=== PATIENT | male | born 1950 | race Caucasian/White ===

== ENCOUNTER 2017-10-20 17:09 | Inpatient (IN) | payer OTHER ==
[~2017-10-20] VITALS: Ht 177.8 cm; Wt 97.0 kg
[2017-10-20] MEDS ORDERED: ETOMIDATE (2MG/ML) 20ML VIAL IV ONE ×2 (17:11→17:30)
[2017-10-20] MEDS ORDERED: SUCCINYLCHOLINE CHLORIDE 20 MG/ML 10ML VIAL IV ONE ×2 (17:12→17:30)
[2017-10-20] MEDS ORDERED: MIDAZOLAM DRIP 50 mg/50mL 50 ML IV ONE (17:14)
[2017-10-20] MEDS ORDERED: SODIUM CHLORIDE 0.9% 1,000 ML IV ONE ×2 (17:19→17:29)
[2017-10-20 17:20] VITALS: BP 52/42
[2017-10-20] MEDS: MIDAZOLAM DRIP 50 mg/50mL 50 ML IV SCH (17:20)
[2017-10-20] MEDS ORDERED: PIPERACILLIN-TAZOB 3.375GM 100 ML IV ONE (17:30)
[2017-10-20] MEDS ORDERED: PHENYLEPHRINE INJ 20 MG in D5W 5% 248 ML IV ONE (17:30)
[2017-10-20 17:36] LABS: Urine Bacteria NONE SEEN /hpf (None Seen); Urine Blood Negative /uL (Negative); Urine Specific Gravity 1.015 (1.001-1.035); Urine WBC 2 /hpf (0 - 3)
[2017-10-20] MEDS ORDERED: DOPamine 3200MCG/ML 250 ML IV SCH (17:50)
[2017-10-20] MEDS ORDERED: DOPamine 1600MCG/ML D5W 250 ML IV ONE (18:00)
[2017-10-20 18:19] LABS: Mean Corpuscular Volume 97.6 fL (80.0-100.0)
[2017-10-20 18:21] LABS: Hematocrit 25.4 % (41.0-53.0); Mean Corpuscular Hemoglobin 30.9 pg (28.0-32.0); Mean Corpuscular Hgb Conc. 31.7 g/dL (32.0-36.0); Platelet Count (auto) 341 10^3/uL (140-450); White Blood Cell 29.8 10^3/uL (4.4-10.8)
[2017-10-20 18:22] LABS: Red Cell Distribution Width 21.2 % (11.8-14.3)
[2017-10-20 18:28] LABS: Basophils % (manual) 0 (0.0-2.0); Blast Cells 0; Eosinophils % (manual) 0 (0-7); Metamyelocytes % 0; Myelocytes % 0; Promyelocytes % 0; Reactive Lymphocytes 0
[2017-10-20 18:36] LABS: INR 1.88 (0.9-1.15); Prothrombin Time 19.4 sec (9.27-12.13)
[2017-10-20 18:40] LABS: Albumin 1.7 g/dL (3.4-5.0); BUN/Creatinine Ratio 24.9; Bilirubin, Total 0.7 mg/dL (0.2-1.0); Potassium 3.9 mmol/L (3.5-5.1); Total Protein 5.2 g/dL (6.4-8.2)
[2017-10-20 19:36] LABS: Band Neutrophils % (manual) 1; Lymphocytes % (manual) 2 (10.0-50.0); Monocytes % (manual) 2 (0-12)
[2017-10-20 20:00] VITALS: BP 104/54
[2017-10-20] MEDS ORDERED: ACETAMINOPHEN 325 MG TAB PO PRN (20:00)
[2017-10-20] MEDS ORDERED: SODIUM CHLORIDE 0.9% 500 ML IV ONE (20:00)
[2017-10-20] MEDS ORDERED: ONDANSETRON HCL 4 MG/2 ML VIAL IV PRN (20:00)
[2017-10-20] MEDS ORDERED: MORPHINE SULF INJ 2 MG/ML SYRINGE 1ML IV PRN (20:00)
[2017-10-20] MEDS ORDERED: PANTOPRAZOLE 40 MG/10 ML VIAL IV ONE (20:00)
[2017-10-20] MEDS ORDERED: VANCOMYCIN PER PHARMACY 0 MG IV SCH (20:00)
[2017-10-20] MEDS ORDERED: DEXTROSE (50%) 50ML SYRG IV PRN (20:00)
[2017-10-20] MEDS ORDERED: NITROGLYCERIN 0.4 MG SL TAB SL PRN (20:00)
[2017-10-20] MEDS ORDERED: CALCIUM GLUC 4.65meq/50ml D5AE 50 ML IV ONE ×2 (20:00→20:30)
[2017-10-20] MEDS ORDERED: ENOXAPARIN SOD 100 MG/1 ML SYRINGE SC ONE (20:00)
[2017-10-20] MEDS: NOREPINEPHRINE 8 MG/250ML KIT 250 ML IV SCH (20:28)
[2017-10-20] MEDS: SODIUM CHLORIDE 0.9% 1,000 ML IV SCH (20:29)
[2017-10-20] MEDS ORDERED: ENOXAPARIN SOD 80 MG/0.8ML SYRINGE SC ONE (20:30)
[2017-10-20] MEDS ORDERED: VANCOMYCIN 1GM/250ML 250 ML IV ONE (21:07)
[2017-10-20] MEDS ORDERED: ASPirin 81 mg TAB PO ONE (21:45)
[2017-10-20] MEDS: fentaNYL Drip 2500mCg/250mlNS 250 ML IV SCH (21:49)
[2017-10-20 22:01] VITALS: BP 121/65
[2017-10-20] MEDS ORDERED: PHENYLEPHRINE IV 250 ML IV ONE (22:59)
[2017-10-21] VITALS (74 sets, daily range): BP systolic 62–142; BP diastolic 36–80
[2017-10-21] MEDS: PIPERACILLIN-TAZOB 2.25GM 50 ML IV SCH ×4 (00:30→17:36)
[2017-10-21] MEDS: InsuLIN REG 1unit/0.01ml Soln (100units/ml) SC SCH ×4 (01:09→17:41)
[2017-10-21] MEDS: ACCU-CHEK COMFORT CURVE STRIP VI SCH ×4 (06:00→17:40)
[2017-10-21 06:32] LABS: Eosinophils # (auto) 0.1 uL
[2017-10-21 06:37] LABS: Monocytes # (auto) 1.3 uL; Monocytes % (auto) 3.5 % (0.0-12.0)
[2017-10-21 06:38] LABS: Basophils # (auto) 0 uL; Eosinophils % (auto) 0.4 % (0.0-7.0); Hematocrit 18.6 % (41.0-53.0); Lymphocytes # (auto) 1.6 uL; Lymphocytes % (auto) 4.4 % (10.0-50.0); Mean Corpuscular Hemoglobin 30.6 pg (28.0-32.0); Mean Corpuscular Hgb Conc. 31.7 g/dL (32.0-36.0); Mean Corpuscular Volume 96.5 fL (80.0-100.0); Neutrophils # (auto) 32.9 uL; Neutrophils % (auto) 91.7 % (37.0-80.0); Platelet Count (auto) 442 10^3/uL (140-450); Red Blood Cells 1.93 10^6/uL (4.5-5.90)
[2017-10-21 06:43] LABS: Red Cell Distribution Width 20.7 % (11.8-14.3)
[2017-10-21 06:44] LABS: Hemoglobin 5.9 g/dL (13.5-17.5); White Blood Cell 35.8 10^3/uL (4.4-10.8)
[2017-10-21 06:52] LABS: Potassium 3.5 mmol/L (3.5-5.1)
[2017-10-21 06:57] LABS: Albumin 1.6 g/dL (3.4-5.0); BUN/Creatinine Ratio 25.1; Calcium 6.9 mg/dL (8.5-10.1)
[2017-10-21 07:00] LABS: Bilirubin, Total 0.9 mg/dL (0.2-1.0); Total Protein 5.4 g/dL (6.4-8.2)
[2017-10-21 08:27] LABS: Hematocrit 31.1 % (41.0-53.0); Hemoglobin 9.5 g/dL (13.5-17.5)
[2017-10-21] MEDS ORDERED: ASPirin 81 mg TAB PO SCH (10:00)
[2017-10-21] MEDS ORDERED: LINEZOLID 600MG/300ML 300 ML IV SCH (10:00)
[2017-10-21] MEDS ORDERED: PANTOPRAZOLE 40 MG/10 ML VIAL IV SCH (10:00)
[2017-10-21] MEDS ORDERED: ENOXAPARIN SOD 80 MG/0.8ML SYRINGE SC SCH (10:00)
[2017-10-21] MEDS: SODIUM CHLORIDE 0.9% 1,000 ML IV SCH (10:00)
[2017-10-21] MEDS: PHENYLEPHRINE INJ 20 MG in D5W 5% 250 ML IV SCH ×2 (10:30→17:41)
[2017-10-21] MEDS ORDERED: SODIUM CHLORIDE 0.9% 500 ML IV ONE ×2 (11:00→12:00)
[2017-10-21 14:12] LABS: Urine Amorphous Crystal FEW /hpf (None Seen); Urine Bacteria FEW /hpf (None Seen); Urine Blood 2+ /uL (Negative); Urine WBC 17 /hpf (0 - 3)
[2017-10-21] MEDS: MIDAZOLAM DRIP 50 mg/50mL 50 ML IV SCH ×2 (14:15→18:47)
[2017-10-21 14:27] LABS: Protein, Urine 130.2 mg/dL (0.0-11.9)
[2017-10-21] MEDS: NOREPINEPHRINE 8 MG/250ML KIT 250 ML IV SCH (15:38)
[2017-10-21] MEDS: fentaNYL Drip 2500mCg/250mlNS 250 ML IV SCH (20:54)
[2017-10-21] MEDS ORDERED: ATORVASTATIN 20 MG TAB PO SCH (22:00)
== END 2017-10-21 22:28 | disposition short-term general hospital (02) | DRG 871 ==
LOC: ER 17:09 → TELE 17:10 → ICU WEST 10-21 04:20
PROVIDERS: ADMIT Nurse Practitioner; ATTEND Family Medicine
PROC: 5A1945Z Respiratory Ventilation, 24-96 Consecutive Hours (ICD-10-PCS; principal; 2017-10-20)
PROC: 0BH17EZ Insertion of Endotracheal Airway into Trachea, Via Natural or Artificial Opening (ICD-10-PCS; 2017-10-20)
DX: A41.9 Sepsis, unspecified organism (principal); J18.9 Pneumonia, unspecified organism; R65.21 Severe sepsis with septic shock; J96.20 Acute and chronic respiratory failure, unspecified whether with hypoxia or hypercapnia; N17.0 Acute kidney failure with tubular necrosis; E44.1 Mild protein-calorie malnutrition; I13.0 Hypertensive heart and chronic kidney disease with heart failure and stage 1 through stage 4 chronic kidney disease, or unspecified chronic kidney disease; E11.52 Type 2 diabetes mellitus with diabetic peripheral angiopathy with gangrene; J44.0 Chronic obstructive pulmonary disease with (acute) lower respiratory infection; J98.11 Atelectasis; I96 Gangrene, not elsewhere classified; D64.9 Anemia, unspecified; E11.22 Type 2 diabetes mellitus with diabetic chronic kidney disease; F17.200 Nicotine dependence, unspecified, uncomplicated; I25.10 Atherosclerotic heart disease of native coronary artery without angina pectoris; I48.91 Unspecified atrial fibrillation; I25.2 Old myocardial infarction; I50.9 Heart failure, unspecified; N18.3 Chronic kidney disease, stage 3 (moderate); R79.1 Abnormal coagulation profile; Z95.1 Presence of aortocoronary bypass graft; Z68.30 Body mass index [BMI] 30.0-30.9, adult
CPT/HCPCS: 31500; 36415; 36556; 36600; 51702; 71045; 76604; 80053; 81001; 82570; 82805; 82962; 83605; 83880; 84156; 84300; 84484; 85007; 85014; 85018; 85025; 85027; 85379; 85610; 85730; 87040; 87070; 87077; 87081; 87086; 87186; 87205; 93005; 93306; 93970; 94002; 94003; 96365; 96367; 96375; 99291; C9113; J0330; J0610; J1265; J1815; J2250; J2543; J7060